=== PATIENT | male | born 1950 | race Hispanic/Latino ===

== ENCOUNTER 2018-08-28 11:32 | Day surgery (SDC) | payer OTHER, MEDICARE ==
[~2018-08-28 11:32] MED LIST: ANCEF/STERILE WATER 2 GM/20 ML 2 GM/20 ML SYRINGE IV NR; NACL 0.9% 1000 ML 1,000 ML IV SCH
[2018-08-28 12:46] LABS: Basophils % (Auto) 0.5 % (0.0-1.8); Eosinophils # (Auto) 0.2 K/mm3 (0.0-0.4); Eosinophils % (Auto) 3.1 % (0.0-4.3); Hematocrit 37.2 % (35.5-45.6); Hemoglobin 12.5 gm/dl (11.8-15.2); Mean Corpuscular HGB Conc 34 % (32-34); Mean Corpuscular Volume 90 fl (84-94); Monocytes # (Auto) 0.5 K/mm3 (0.0-0.8); Monocytes % (Auto) 8.1 % (0.0-7.3); Platelet Count 167 K/mm3 (140-440); Red Blood Count 4.12 M/mm3 (3.65-5.03); Red Cell Distribution Width 17.9 % (13.2-15.2)
[2018-08-28 12:56] LABS: Partial Thromboplastin Time 31.7 Sec. (24.2-36.6)
[2018-08-28 13:02] LABS: BUN/Creatinine Ratio 14; Blood Urea Nitrogen 10 mg/dL (9-20); Calcium 8.6 mg/dL (8.4-10.2); Hemolysis Index 33
[2018-08-28 13:17] LABS: INR 0.93 (0.87-1.13)
[2018-08-28] MEDS ORDERED: HEPARIN/NS 5000 UNIT/500ML(CATH LAB) 500 ML IR ONE (15:54)
[2018-08-28] MEDS ORDERED: HEPARIN 10,000 UNITS/10 ML ONE (15:54)
[2018-08-28] MEDS ORDERED: ANCEF/STERILE WATER 2 GM/20 ML 2 GM/20 ML SYRINGE IV ONE (15:54)
[2018-08-28] MEDS ORDERED: NACL 0.9% 500 ML 500 ML ONE (15:55)
[2018-08-28] MEDS ORDERED: XYLOCAINE 1%/ EPI 1:100,000 INFILTRATI ONE (15:55)
[2018-08-28] MEDS: VERSED ONE ×2 (16:06→16:08)
[2018-08-28] MEDS: SUBLIMAZE ONE ×2 (16:06→16:08)
[2018-08-28] MEDS ORDERED: VERSED ONE (16:30)
[2018-08-28] MEDS ORDERED: SUBLIMAZE ONE (16:31)
--- NOTE | 2018-08-28 17:37 | Short Stay Summary ---
Short Stay Documentation Date of service: 08/28/18 Narrative H&P: 67 year old male with rectal cancer s/p surgery who now needs port for chemotherapy. - History Principal diagnosis: rectal cancer Past Medical History: cancer Past Surgical History: bowel surgery - Allergies and Medications Current Medications: Allergies shellfish Adverse Reaction (Uncoded 08/28/18 12:11) Swelling Home Medications Medication Instructions Recorded Confirmed Last Taken Type Zolpidem Tartrate 5 mg PO PRN PRN 08/28/18 08/28/18 08/27/18 History oxyCODONE [Roxicodone TAB] 5 mg PO PRN PRN 08/28/18 08/28/18 08/27/18 History Active Medications Cefazolin Sodium (Ancef/Sterile Water 2 Gm/20 Ml) 2 gm in 20 mls @ 80 mls/hr IV PREOP NR; Protocol Stop: 08/28/18 23:59 Last Admin: 08/28/18 16:00 Dose: 20 mls Documented by: Sodium Chloride (Nacl 0.9% 1000 Ml) 1,000 mls @ 42 mls/hr IV DIRECT ROB Last Admin: 08/28/18 15:27 Dose: 42 mls/hr Documented by: - Physical exam General appearance: no acute distress Lungs: Normal air movement Gastrointestinal: normal, other (colostomy) - Brief post op/procedure progress note Date of procedure: 08/28/18 Pre-op diagnosis: Rectal cancer Post-op diagnosis: same Procedure: Port placement Anesthesia: local (w/ conscious sedation) Surgeon: MONTY JACOB Estimated blood loss: minimal Condition: stable - Hospital course Hospital course: Ready for discharge. - Disposition Condition at discharge: Stable Disposition: DC-01 TO HOME OR SELFCARE - Discharge Diagnoses (1) Rectal cancer Status: Acute Short Stay Discharge Plan Activity: advance as tolerated Weight Bearing Status: Weight Bear as Tolerated Diet: regular Wound: keep clean and dry (take off tegaderm tomorrow, avoid showering for 7 days) Follow up with: PRIMARY CARE, [Primary Care Provider] - 7 Days
--- NOTE | 2018-08-28 17:41 | Operative Report ---
Operative Report Operative Report: EXAM: 1. Ultrasound-guided puncture of the right internal jugular vein 2. Fluoroscopic-guided placement of a right internal jugular tunneled 8 Fr BARD port placement. DATE: 08/28/18 INDICATION: Rectal cancer requiring chemotherapy. MEDICATIONS: Please see nursing report for full details. DEVICES: 8 Fr single lumen power port CONTRAST: None [employer] SUPERINTENDENT: Jose Ross MD PROCEDURE: The risks, benefits, and alternatives were discussed and informed consent was obtained. The patient was transported to the angiography suite in satisfactory/stable condition and was transported onto the angiography table. The patient's right internal jugular vein was assessed with ultrasound and determined to be patent prior to procedure. The patient was prepped and draped in a sterile fashion. The puncture site was anesthetized. Under sonographic guidance, the right internal jugular vein was punctured with a 21-gauge micropuncture needle and a 0.018 inch wire was advanced into the inferior vena cava. The micropuncture needle was exchanged for a transitional dilator and the wire was retracted into the right atrium to toribio intravascular distance. The wire and inner dilator were removed. 0.035 inch wire was advanced through the transitional dilator into the inferior vena cava. A suitable port pocket site was identified on the patient's chest inferior and lateral to the venotomy. The site was anesthetized with local anesthetic at the pocket and the track was anesthetized. Incision was made with a 15 blade extending approximately 2 cm. The port was created with the use of a hemostat and hemostasis was achieved with manual compression. The port pocket was irrigated. The port was tested and the port was attached to the tubing. The port was the retested and attached to the tunneling device. The port was placed in the pocket and then tunneled to the venotomy. The port tubing was cut to predetermined length. Over the 0.035 inch wire, serial dilatation was performed with ultimate placement of a peel-away sheath. The catheter was advanced through the peel- away sheath after the wire was removed and positioned centrally under fluoroscopic guidance. The peel-away sheath was removed. The pocket was closed in 2 layers with multiple deep interrupted 3-0 Vicryl sutures with a running subcuticular 4-0 Vicryl suture. The venotomy was closed with a single deep interrupted 3-0 Vicryl suture. Dermabond was applied to both sites and Steri-Strips were then applied. The port was the catheter was charged with heparin 200 units/mL space. Sterile dressing applied. The patient was transferred from the angiography suite back to the floor in stable condition. FINDINGS: 1. Excellent flow was obtained through the port. 2. The catheter tip is in the right atrium. IMPRESSION: 1. Successful ultrasound and fluoroscopically guided placement of a right internal jugular tunneled 8 [place] Bard signal lumen power port.
[2018-08-28 17:49] VITALS: BP 137/65
== END 2018-08-28 18:00 | disposition home or self-care (01) ==
LOC: CATHLABREC 11:32
PROVIDERS: ATTEND Radiology Diagnostic Radiology
DX: C20 Malignant neoplasm of rectum (principal); J45.909 Unspecified asthma, uncomplicated; G47.30 Sleep apnea, unspecified; Z90.49 Acquired absence of other specified parts of digestive tract; Z79.01 Long term (current) use of anticoagulants; Z79.899 Other long term (current) drug therapy; Z91.040 Latex allergy status; Z98.890 Other specified postprocedural states; Z86.2 Personal history of diseases of the blood and blood-forming organs and certain disorders involving the immune mechanism
CPT/HCPCS: 36415; 36561; 76937; 80048; 85025; 85610; 85730; C1788; J0690; J1644; J2250; J3010; J7030; J7040

== ENCOUNTER 2019-03-12 06:30 | Day surgery (SDC) | payer OTHER, MEDICARE ==
[2019-03-12] MEDS ORDERED: NACL 0.9% 500 ML 500 ML IV SCH (07:00)
[2019-03-12 07:27] LABS: Basophils # (Auto) 0.1 K/mm3 (0.0-0.1); Basophils % (Auto) 1.1 % (0.0-1.8); Eosinophils # (Auto) 0.2 K/mm3 (0.0-0.4); Eosinophils % (Auto) 3.6 % (0.0-4.3); Hematocrit 38.4 % (35.5-45.6); Hemoglobin 13.3 gm/dl (11.8-15.2); Lymphocytes % (Auto) 19.7 % (13.4-35.0); Mean Corpuscular HGB Conc 35 % (32-34); Mean Corpuscular Volume 91 fl (84-94); Monocytes # (Auto) 0.5 K/mm3 (0.0-0.8); Monocytes % (Auto) 10.1 % (0.0-7.3); Platelet Count 151 K/mm3 (140-440); Red Blood Count 4.21 M/mm3 (3.65-5.03)
[2019-03-12 07:34] LABS: INR 1.06 (0.87-1.13); Partial Thromboplastin Time 23.3 Sec. (24.2-36.6)
[2019-03-12 07:43] LABS: BUN/Creatinine Ratio 17; Blood Urea Nitrogen 12 mg/dL (9-20); Calcium 8.6 mg/dL (8.4-10.2); Hemolysis Index 8
[2019-03-12] MEDS ORDERED: HEPARIN/NS 5000 UNIT/500ML(CATH LAB) 500 ML IR ONE (08:15)
--- NOTE | 2019-03-12 08:18 | Short Stay Summary ---
Short Stay Documentation Date of service: 03/12/19 - History Principal diagnosis: Port no longer needed Past Medical History: cancer Past Surgical History: bowel surgery, Other (right chest wall port) Social history: , lives with family - Allergies and Medications Current Medications: Allergies egg Allergy (Verified 03/12/19 07:47) Swelling shellfish Allergy (Intermediate, Uncoded 03/12/19 06:49) Swelling Home Medications Medication Instructions Recorded Confirmed Last Taken Type Zolpidem Tartrate 5 mg PO PRN PRN 08/28/18 03/12/19 03/11/19 History 5mg Adult Multi Gummies 1 tab PO DAILY 03/12/19 03/12/19 03/11/19 History 1 tab Active Medications Sodium Chloride (Nacl 0.9% 500 Ml) 500 mls @ 50 mls/hr IV DIRECT ROB Last Admin: 03/12/19 07:58 Dose: 50 mls/hr Documented by: - Physical exam General appearance: no acute distress Integumentary: no rash, no growths HEENT: Atraumatic Lungs: Normal air movement Breasts: deferred Heart: Regular rate Male Genitourinary: deferred Rectal Exam: deferred Extremities: no No edema (BLE edema) Neurological: Normal gait, Normal speech - Brief post op/procedure progress note Date of procedure: 03/12/19 Pre-op diagnosis: Port no longer needed Post-op diagnosis: same Procedure: Right chest wall port removal Anesthesia: local Surgeon: MONTY GAYTAN Estimated blood loss: minimal Pathology: none Condition: stable - Disposition Condition at discharge: Good Disposition: DC-01 TO HOME OR SELFCARE Short Stay Discharge Plan Activity: advance as tolerated Weight Bearing Status: Weight Bear as Tolerated Diet: regular Wound: keep clean and dry, per your surgeon's advice Follow up with: PRIMARY CARE, [Primary Care Provider] - 7 Days
[2019-03-12] MEDS ORDERED: SUBLIMAZE ONE (08:28)
[2019-03-12] MEDS ORDERED: VERSED ONE (08:28)
[2019-03-12] MEDS: XYLOCAINE 2% INFILTRATI ONE ×2 (08:40→08:43)
--- NOTE | 2019-03-12 09:05 | Operative Report ---
Operative Report Operative Report: Exam: Right chest wall port removal Clinical indication: Port no longer needed Date: 03/12/2019 Procedure: Following an explanation of the risks, benefits and alternatives; written informed consent was obtained. The patient was brought to the angiographic suite. Initial fluoroscopic images demonstrated appropriate positioning of the previously placed port with intact tubing. The patient's right chest wall was prepped and draped in the usual sterile fashion. 1% lidocaine was used for anesthesia at the port insertion site. Using a combination of sharp and blunt dissection, the port was freed from the port pocket. The port and poor tubing were then removed intact. Hemostasis was achieved using manual compression. The incision was closed using subcutaneous and subcuticular 3-0 Vicryl and 4-0 Monocryl suture. Dermabond and Steri-Strips were then applied. A sterile dressing was then applied. The patient tolerated the procedure well. There were no immediate postprocedure complications. Conscious sedation was performed under the guidance of radiologic nursing. Continuous cardiopulmonary monitoring was utilized Impression: Right chest wall port removal
[2019-03-12 10:05] VITALS: BP 124/68
== END 2019-03-12 10:31 | disposition home or self-care (01) ==
LOC: CATHLABREC 06:30
PROVIDERS: ATTEND Radiology Diagnostic Radiology
DX: C21.8 Malignant neoplasm of overlapping sites of rectum, anus and anal canal (principal); J45.909 Unspecified asthma, uncomplicated; G47.30 Sleep apnea, unspecified; Z91.013 Allergy to seafood; Z91.012 Allergy to eggs; Z79.899 Other long term (current) drug therapy; Z87.891 Personal history of nicotine dependence; Z72.89 Other problems related to lifestyle; Z98.890 Other specified postprocedural states; Z79.01 Long term (current) use of anticoagulants
CPT/HCPCS: 36415; 36590; 80048; 85025; 85610; 85730; 99156; 99157; J1644; J2250; J3010; J7040